=== PATIENT | male | born 1960 ===

== ENCOUNTER 2018-03-20 12:58 | Outpatient (CLI) | payer OTHER ==
[~2018-03-20] VITALS: Ht 177.8 cm; Wt 72.1 kg
== END 2018-03-20 13:15 | disposition home or self-care (01) ==
LOC: EDBD 12:58 → OFIC 805 12:58
DX: G47.33 Obstructive sleep apnea (adult) (pediatric) (principal); R06.83 Snoring; G50.1 Atypical facial pain; R06.89 Other abnormalities of breathing

== ENCOUNTER 2019-01-28 10:02 | Outpatient (CLI) | payer OTHER | END 2019-01-28 10:09 | disposition home or self-care (01) | LOC: RAD 10:02 | DX: M54.12 Radiculopathy, cervical region (principal) ==